=== PATIENT | male | born 2000 | race Caucasian/White ===

== ENCOUNTER → 2022-08-07 07:51 | Outpatient (CLI) | payer OTHER, SELFPAY ==
--- NOTE | 2022-08-07 07:55 | DI.ECHO.S_ITS ---
[facility]---------+ [facility] +---------+ : : [address] : [address] : : : : [id number] : : : : Phone: [phone] +---------+ Echocardiogram Report + + :Name: HEMANTH DAVE Study Date: 08/07/2022 Height: 74 in : :[facility] ReadingLocation: Weight: 210 lb : : Gender: Male BSA: 2.2 m2 : :: 2000 Age: 22 yrs BP: 110/62 mmHg: :Reason For Study: ATRIAL FIBRILLATION, PALPITATIONS HR: 90 : :Ordering Physician: HANNA, : :SHOSHANA Performed By: ROGER MCMAHON : :Referring: SHOSHANA FERREIRA : + + Interpretation Summary The left ventricle appears normal in size, wall thickness, and systolic function without any focal wall motion abnormalities. The ejection fraction is estimated to be 60-65%. Diastolic parameters suggest probable normal left ventricular diastolic function and normal filling pressures. The right ventricle is normal in size and function. No significant valvular pathology seen. The IVC is of normal diameter and collapses greater than 50% with a sniff. This suggests a low right atrial pressure of 3 mm Hg. Procedure: A two-dimensional transthoracic echocardiogram with color flow and Doppler was performed. The study quality was technically adequate. There is no prior echocardiogram noted for this patient. The patient was in normal sinus rhythm during the exam. Left Ventricle: The left ventricle is normal in size and wall thickness. The left ventricle appears normal in size, wall thickness, and systolic function without any focal wall motion abnormalities. There is no thrombus. Left ventricular systolic function is normal. The ejection fraction is estimated to be 60-65%. Diastolic parameters suggest probable normal left ventricular diastolic function and normal filling pressures. Right Ventricle: The right ventricle is normal in size and function. Atria: Both atria are normal in size. There is no Doppler evidence for an interatrial shunt. Mitral Valve: The mitral valve is normal in structure and function. There is a flat closure plane of the the mitral valve leaflets. There is trace mitral regurgitation. Aortic Valve: The aortic valve opens well. The aortic valve is trileaflet. There is no aortic valve stenosis. No aortic regurgitation is present. Tricuspid Valve: The tricuspid valve is normal in structure and function. There is trace tricuspid regurgitation. The right ventricular systolic pressure is estimated to be at least 19 mmHg based on an estimated right atrial pressure of 3 mm Hg. Pulmonic Valve: The pulmonic valve is normal in structure and function. There is no pulmonic valvular regurgitation. Great Vessels: The aortic root is normal size. The ascending aorta is normal in size. The IVC is of normal diameter and collapses greater than 50% with a sniff. This suggests a low right atrial pressure of 3 mm Hg. Pericardium/ Pleura There is no pericardial effusion. There is no pleural effusion. MMode/2D Measurements & Calculations LVIDd: 4.6 cm LVOT diam: 2.1 cm LVIDs: 2.9 cm Ao root diam: 3.2 cm FS: 37.0 % asc Aorta Diam: 2.5 cm IVSd: 0.90 cm Ao Arch Diam (Prox Trans): 2.1 cm LVPWd: 0.80 cm LV quevedo. diameter/BSA (cm/m^2): 2.1 LV sys. diameter/BSA (cm/m^2): 1.3 LA A2 area: 16.9 cm2 RA long axis: 5.1 cm LA A4 area: 14.8 cm2 LA length (vol): 4.8 cm LA vol: 44.1 ml LA vol index: 19.9 ml/m2 RVD1 (basal): 3.1 cm LVLs ap4: 6.6 cm LVLd ap2: 7.5 cm TAPSE_phl: 1.9 cm LVLs ap2: 6.4 cm Doppler Measurements & Calculations Ao V2 max: 114.0 cm/sec LVOT Max Yousuf: 109.0 cm/sec Ao V2 mean: 80.8 cm/sec LV V1 max P.8 mmHg Ao max P.2 mmHg LV V1 VTI: 20.8 cm Ao mean P.0 mmHg MARIYA(I,D): 3.3 cm2 Ao V2 VTI: 21.8 cm MARIYA(V,D): 3.3 cm2 sev ratio: 0.95 MARIYA indexed to BSA (cm^2/m^2): 1.5 MV E max yousuf: 81.4 cm/sec TR max yousuf: 200.0 cm/sec MV A max yousuf: 57.8 cm/sec TR max P.0 mmHg MV E/A: 1.4 PA pr(Accel): 17.3 mmHg Med Peak E' Yousuf: 12.8 cm/sec E/E' med: 6.4 Lat Peak E' Yousuf: 14.7 cm/sec E/E' lat: 5.5 E/e' average: 5.9 MV dec time: 0.19 sec SV(LVOT): 72.0 ml AV VR_phl: 0.96 MARIYA(VTI)/BSA_phl: 1.5 MV P1/2t-pr_phl: 56.0 msec Reading Physician:10:14 AM
--- NOTE | 2022-08-07 07:55 | DI.NM.S_ITS ---
PROCEDURE: NM EXERCISE TREADMILL NON NUC COMPARISON: None. INDICATIONS: Unspecified atrial fibrillation,Palpitations FINDINGS: The patient exercised for 11 minutes and 42 seconds reaching 93% of maximum predicted heart rate. 12.6MET with UNA +21%. Appropriate BP response to exercise (resting BP 112/70mmHg, max BP 152/58mmHg). No chest pain, no ST changes, and no ectopy during the study. IMPRESSION: Low risk, normal treadmill ECG only stress test with mildly reduced exercise tolerance (UNA +21%). Dictated by: Licha Wilkes MD on 08/07/2022 at 13:01 Approved by: Licha Wilkes MD on 08/07/2022 at 13:03
== END ==
PROVIDERS: Referring Provider Internal Medicine Cardiovascular Disease; Visit Provider Internal Medicine Cardiovascular Disease
DX: I48.91 Unspecified atrial fibrillation (principal); R00.2 Palpitations
CPT/HCPCS: 93017; 93306

== ENCOUNTER → 2022-10-01 13:44 | Outpatient (CLI) | payer OTHER, SELFPAY ==
[2022-10-01 14:21] LABS: Cholesterol 138 mg/dL (140-199); HDL Cholesterol 49 mg/dL (40-60); LDL Cholesterol Calculated 61 mg/dL (<100); Triglycerides 141 mg/dL (35-150)
[2022-10-01 14:53] LABS: Thyroid Stimulating Hormone 1.82 uIU/mL (0.47-4.68)
== END ==
PROVIDERS: Referring Provider Internal Medicine Cardiovascular Disease; Visit Provider Internal Medicine Cardiovascular Disease
DX: R00.2 Palpitations (principal); Z13.220 Encounter for screening for lipoid disorders; R00.0 Tachycardia, unspecified; I48.0 Paroxysmal atrial fibrillation
CPT/HCPCS: 36415; 80061; 84443

== ENCOUNTER → 2022-11-24 09:01 | Outpatient (CLI) | payer OTHER, SELFPAY ==
--- NOTE | 2022-11-24 09:04 | DI.ECHO.S_ITS ---
[facility]---------+ [facility] +---------+ : : [address] : [address] : : : : [id number] : : : : Phone: [phone] +---------+ Echocardiogram Report + + :Name: HEMANTH DAVE Study Date: 11/24/2022 Height: 74 in : :[facility] ReadingLocation: Weight: 195 lb : : Gender: Male BSA: 2.1 m2 : :: 2000 Age: 22 yrs BP: 117/66 mmHg: :Reason For Study: Tachycardia : :Ordering Physician: TARA, : :MICHELL Performed By: Barbra Bales : :Referring: MICHELL PACHECO : + + Interpretation Summary 1) Normal left ventricular thickness, size, wall motion, and systolic function (EF 60-65%). 2) Normal right ventricular size and function. 3) No significant valvular abnormalities. 4) Compared to the Echo done 08/07/2022, no significant change. Procedure: A two-dimensional transthoracic echocardiogram with color flow and Doppler was performed. The study quality was technically adequate. Comparison is made with the echocardiogram of 08/07/2022. The patient was in normal sinus rhythm during the exam. Left Ventricle: The left ventricle is normal in size and wall thickness. The ejection fraction is estimated to be 60-65%. Left ventricular systolic function appears normal without focal wall motion abnormalities. Diastolic parameters suggest probable normal left ventricular diastolic function and normal filling pressures. Right Ventricle: The right ventricle is normal size. The right ventricular systolic function is normal. Atria: The left atrial size is normal. Right atrial size is normal. There is no Doppler evidence for an interatrial shunt. Mitral Valve: The mitral valve is normal. There is no mitral valve stenosis. There is no mitral regurgitation noted. Aortic Valve: The aortic valve is trileaflet. The aortic valve opens well. There is no aortic valve stenosis. No aortic regurgitation is present. Tricuspid Valve: The tricuspid valve is normal. There is no tricuspid stenosis. There is trace tricuspid regurgitation. Pulmonic Valve: The pulmonic valve leaflets are thin and pliable; valve motion is normal. There is no pulmonic valvular stenosis. There is trace pulmonic regurgitation. Great Vessels: The aortic root is normal size. The ascending aorta is normal in size. The pulmonary artery is normal size. The IVC is of normal diameter and collapses greater than 50% with a sniff. This suggests a low right atrial pressure of 3 mm Hg. Pericardium/ Pleura There is no pericardial effusion. There is no pleural effusion. MMode/2D Measurements & Calculations LVIDd: 4.9 cm LVOT diam: 2.3 cm LVIDs: 3.4 cm Ao root diam: 3.0 cm FS: 30.6 % asc Aorta Diam: 2.6 cm EPSS: 0.40 cm IVSd: 0.90 cm LVPWd: 0.80 cm LV quevedo. diameter/BSA (cm/m^2): 2.3 LV sys. diameter/BSA (cm/m^2): 1.6 LA A4 area: 8.3 cm2 RA long axis: 4.7 cm RA area: 9.4 cm2 RA vol: 16.1 ml RA : 7.5 ml/m2 RVD1 (basal): 3.8 cm LVLs ap4: 7.1 cm LVLd ap2: 8.0 cm TAPSE_phl: 2.3 cm LVLs ap2: 7.5 cm Doppler Measurements & Calculations Ao V2 max: 106.0 cm/sec LVOT Max Yousuf: 79.9 cm/sec Ao V2 mean: 75.6 cm/sec LV V1 max P.6 mmHg Ao max P.0 mmHg LV V1 VTI: 15.5 cm Ao mean P.0 mmHg MARIYA(I,D): 2.8 cm2 Ao V2 VTI: 22.9 cm MARIYA(V,D): 3.1 cm2 sev ratio: 0.68 MARIYA indexed to BSA (cm^2/m^2): 1.3 MV E max yousuf: 85.3 cm/sec TR max yousuf: 174.0 cm/sec MV A max yousuf: 63.4 cm/sec TR max P.1 mmHg MV E/A: 1.3 PA V2 max: 87.2 cm/sec Med Peak E' Yousuf: 11.9 cm/sec PA V2 mean: 60.2 cm/sec E/E' med: 7.2 PA mean P.0 mmHg Lat Peak E' Yousuf: 16.0 cm/sec PA pr(Accel): 26.8 mmHg E/E' lat: 5.3 E/e' average: 6.2 MV dec time: 0.19 sec SV(LVOT): 64.4 ml AV VR_phl: 0.75 MARIYA(VTI)/BSA_phl: 1.3 MV P1/2t-pr_phl: 55.0 msec Reading Physician:03:19 PM
== END ==
PROVIDERS: Referring Provider Chiropractor; Visit Provider Chiropractor
DX: I48.91 Unspecified atrial fibrillation (principal); R00.0 Tachycardia, unspecified
CPT/HCPCS: 93005; 93306